=== PATIENT | male | born 1995 | race Caucasian/White ===

== ENCOUNTER 2017-09-04 01:23 | Emergency (ER) | payer BC ==
[2017-09-04 01:27] VITALS: BP 144/72; PULSE 96; RESP 14; TEMP 97.9; O2SAT 97
--- NOTE | 2017-09-04 01:37 | EDPHY ---
H & P Stated Complaint: tick in leg Time Seen by Provider: 09/04/17 01:33 HPI/ROS: Chief Complaint: Patient thinks he has a tick in his right leg HPI: 22-year-old male woke this morning with the sensation of something biting his leg. He believes that he has a tick in his medial right thigh. No recent camping or travel. No fevers or chills. Does not recall the getting bit. ROS: 10 point Review of Systems is negative except as noted in the HPI. Physical Exam: General: Awake, alert, no acute distress Right leg: Patient has no obvious insects or infestations. There is no rash. Patient is indicating an area that he thinks the take. There is some small amount of adhesive material which is clumping together several was hairs. This is providing the tugging sensation. Skin: No rash - Personal History Current Tetanus/Diphtheria Vaccine: Unsure Current Tetanus Diphtheria and Acellular Pertussis (TDAP): Unsure - Medical/Surgical History Hx Asthma: No Hx Chronic Respiratory Disease: No Hx Diabetes: No Hx Cardiac Disease: No Hx Renal Disease: No Hx Cirrhosis: No Hx Alcoholism: No Hx HIV/AIDS: No Hx Splenectomy or Spleen Trauma: No - Social History Smoking Status: Never smoked Constitutional: Initial Vital Signs Temperature (C) 36.6 C 09/04/17 01:24 Heart Rate 96 09/04/17 01:24 Respiratory Rate 14 09/04/17 01:24 Blood Pressure 144/72 H 09/04/17 01:24 O2 Sat (%) 97 09/04/17 01:24 O2 Delivery Mode Room Air Allergies/Adverse Reactions: No Known Allergies Allergy (Unverified 09/04/17 01:27) Departure - Departure Disposition: Home, Routine, Self-Care Clinical Impression: Leg pain Condition: Good Instructions: Normal Exam (ED) Additional Instructions: Follow up with primary care physician for any concerns. Referrals: Kervin Gray MD [Medical Doctor] - As per Instructions
== END 2017-09-04 01:48 | disposition home or self-care (01) ==
DX: M79.604 Pain in right leg (principal)